=== PATIENT | male | born 1930 | race Caucasian/White ===

== ENCOUNTER → 2017-04-21 | Outpatient (CLI) | payer OTHER ==
[~2017-04-21] MED LIST: ALBU0.63 INH; ALBU18HF INH; ASPI-515 PO; FLUT1DIS3 INH; FURO40TA6 PO; IPRA0.2S35 INH; LISI2.5T PO; METO25TA35 PO; NICO-486 TP; POTA20TA89 PO; PRED10TA PO; TIOT18CA INH
== END | disposition home or self-care (01) ==
LOC: CFH 14:27
PROVIDERS: ATTEND Internal Medicine Cardiovascular Disease
DX: I35.1 Nonrheumatic aortic (valve) insufficiency (principal); I35.8 Other nonrheumatic aortic valve disorders; I25.10 Atherosclerotic heart disease of native coronary artery without angina pectoris
CPT/HCPCS: 93306